=== PATIENT | female | born 1970 | race Caucasian/White ===

== ENCOUNTER 2021-08-04 15:50 | Inpatient (IN) | payer OTHER ==
[2021-08-04 17:52] VITALS: BMI 38.0
[2021-08-04] MEDS ORDERED: chlordiazePOXIDE HCL 25 MG CAPSULE PO ONE (18:46)
[2021-08-04] MEDS ORDERED: chlordiazePOXIDE HCL 25 MG CAPSULE ONE (19:01)
[2021-08-04] MEDS ORDERED: TRIMETHOBENZAMIDE HCL 200MG/2ML INJ IM ONE ×2 (20:30→20:46)
[2021-08-04] MEDS ORDERED: BENZOCAINE/MENTHOL (CHLORASEPTIC ) LOZENGE MM PRN (20:41)
[2021-08-04] MEDS ORDERED: ACETAMINOPHEN 325 MG TABLET (FP) PO PRN ×2 (20:41)
[2021-08-04] MEDS ORDERED: LOPERAMIDE HCL 2 MG CAPSULE PO PRN (20:41)
[2021-08-04] MEDS ORDERED: BISMUTH SUBSALICYLATE 524 MG/30 ML PO PRN (20:41)
[2021-08-04] MEDS ORDERED: NICOTINE POLACRILEX 2 MG GUM BUC PRN (20:41)
[2021-08-04] MEDS ORDERED: MAGNESIUM CITRATE 300 ML BOTTLE PO PRN (20:41)
[2021-08-04] MEDS ORDERED: MAG HYDROX/AL HYDROX/SIMETH 30 ML UNIT-DOSE CUP PO PRN (20:41)
[2021-08-04] MEDS ORDERED: MAGNESIUM HYDROX 2400MG/30ML ORAL SUSPENSION 30 ML CUP PO PRN (20:41)
[2021-08-04] MEDS ORDERED: ONDANSETRON *ODT* 4 MG TABLET SL PRN (20:41)
[2021-08-04] MEDS ORDERED: DICYCLOMINE HCL 10 MG CAPSULE PO PRN (20:41)
[2021-08-04] MEDS ORDERED: chlordiazePOXIDE HCL 25 MG CAPSULE PO PRN (21:03)
[2021-08-04] MEDS: MELATONIN 5 MG TABLETS PO PRN (22:18)
[2021-08-04] MEDS: THIAMINE HCL 100 MG TABLET (FP) PO SCH (22:19)
[2021-08-04] MEDS: chlordiazePOXIDE HCL 25 MG CAPSULE PO SCH (22:21)
[2021-08-04] MEDS: hydrOXYzine PAMOATE 25 MG CAPSULE (FP) PO PRN (22:25)
[2021-08-04] MEDS: IBUPROFEN 400 MG TABLET (FP) PO PRN (22:43)
[2021-08-04] MEDS ORDERED: TRIMETHOBENZAMIDE HCL 200MG/2ML INJ IM PRN (23:58)
[2021-08-05] MEDS: chlordiazePOXIDE HCL 25 MG CAPSULE PO SCH ×4 (06:14→22:28)
[2021-08-05] MEDS: PRENATAL VITAMINS W/ FOLIC ACID TABLET (FP) PO SCH (10:22)
[2021-08-05] MEDS: METHOCARBAMOL 500 MG TABLET PO PRN ×2 (10:23→22:27)
[2021-08-05] MEDS: PANTOPRAZOLE 40 MG TABLET PO SCH (10:23)
[2021-08-05] MEDS: hydrOXYzine PAMOATE 25 MG CAPSULE (FP) PO PRN ×2 (10:25→22:27)
[2021-08-05 10:41] LABS: HEMATOCRIT 31.4 % (32.4-45.2); HEMOGLOBIN 9.5 GM/dL (10.7-15.3); MCH 20.8 pg (25.7-33.7); MCHC 30.3 g/dl (32.0-36.0); MEAN CELL VOLUME 68.6 fl (80-96); MEAN PLT VOLUME 8.3 fl (7.5-11.1); PLATELET COUNT 329 10^3/uL (134-434); RBC 4.58 M/mm3 (3.60-5.2); RDW 20.5 % (11.6-15.6); WHITE BLOOD COUNT 6.8 K/mm3 (4.0-10.0)
[2021-08-05 10:49] LABS: ALBUMIN 3.5 g/dl (3.4-5.0); BLOOD UREA NITROGEN 5.4 mg/dL (7-18); CALCIUM 9.4 mg/dL (8.5-10.1)
[2021-08-05 10:54] LABS: TOT PROT 7.2 g/dl (6.4-8.2)
[2021-08-05 11:01] LABS: CREATININE 0.6 mg/dL (0.55-1.3)
[2021-08-05] MEDS: THIAMINE HCL 100 MG TABLET (FP) PO SCH (22:27)
[2021-08-05] MEDS: MELATONIN 5 MG TABLETS PO PRN (22:27)
[2021-08-06] MEDS: chlordiazePOXIDE HCL 25 MG CAPSULE PO SCH ×4 (06:21→22:15)
[2021-08-06] MEDS: METHOCARBAMOL 500 MG TABLET PO PRN ×2 (06:21→22:14)
[2021-08-06] MEDS: hydrOXYzine PAMOATE 25 MG CAPSULE (FP) PO PRN (06:21)
[2021-08-06] MEDS: PRENATAL VITAMINS W/ FOLIC ACID TABLET (FP) PO SCH (10:15)
[2021-08-06] MEDS: PANTOPRAZOLE 40 MG TABLET PO SCH (10:15)
[2021-08-06] MEDS: IBUPROFEN 400 MG TABLET (FP) PO PRN (10:17)
[2021-08-06] MEDS ORDERED: cloNIDine HCL 0.1 MG TABLET PO PRN (16:54)
[2021-08-06] MEDS: NICOTINE 10 MG CARTRIDGE (INHALER) IH PRN (17:32)
[2021-08-06] MEDS: MELATONIN 5 MG TABLETS PO PRN (22:13)
[2021-08-06] MEDS: THIAMINE HCL 100 MG TABLET (FP) PO SCH (22:14)
[2021-08-07] MEDS ORDERED: chlordiazePOXIDE HCL 10 MG CAPSULE PO PRN
[2021-08-07] MEDS: chlordiazePOXIDE HCL 10 MG CAPSULE PO SCH ×4 (05:52→22:14)
[2021-08-07] MEDS: METHOCARBAMOL 500 MG TABLET PO PRN ×2 (05:54→19:06)
[2021-08-07] MEDS: NICOTINE 10 MG CARTRIDGE (INHALER) IH PRN ×2 (10:05→16:03)
[2021-08-07] MEDS: PANTOPRAZOLE 40 MG TABLET PO SCH (10:06)
[2021-08-07] MEDS: PRENATAL VITAMINS W/ FOLIC ACID TABLET (FP) PO SCH (10:08)
[2021-08-07] MEDS: IBUPROFEN 400 MG TABLET (FP) PO PRN ×2 (10:10→19:06)
[2021-08-07] MEDS: THIAMINE HCL 100 MG TABLET (FP) PO SCH (22:14)
[2021-08-07] MEDS: MELATONIN 5 MG TABLETS PO PRN (22:17)
[2021-08-07] MEDS: hydrOXYzine PAMOATE 25 MG CAPSULE (FP) PO PRN (22:20)
[2021-08-08] MEDS: chlordiazePOXIDE HCL 10 MG CAPSULE PO SCH ×2 (06:11→18:01)
[2021-08-08] MEDS: METHOCARBAMOL 500 MG TABLET PO PRN ×3 (06:12→22:36)
[2021-08-08] MEDS: hydrOXYzine PAMOATE 25 MG CAPSULE (FP) PO PRN ×2 (06:23→18:00)
[2021-08-08] MEDS: PRENATAL VITAMINS W/ FOLIC ACID TABLET (FP) PO SCH (10:30)
[2021-08-08] MEDS: IBUPROFEN 400 MG TABLET (FP) PO PRN (10:31)
[2021-08-08] MEDS: PANTOPRAZOLE 40 MG TABLET PO SCH (10:31)
[2021-08-08] MEDS: NICOTINE 10 MG CARTRIDGE (INHALER) IH PRN ×2 (10:33→18:00)
[2021-08-08] MEDS: THIAMINE HCL 100 MG TABLET (FP) PO SCH (22:35)
[2021-08-08] MEDS: MELATONIN 5 MG TABLETS PO PRN (22:36)
[2021-08-09] MEDS ORDERED: chlordiazePOXIDE HCL 10 MG CAPSULE PO ONE (05:00)
[2021-08-09] MEDS: METHOCARBAMOL 500 MG TABLET PO PRN (05:31)
[2021-08-09] MEDS: IBUPROFEN 400 MG TABLET (FP) PO PRN (05:44)
[2021-08-09 08:43] VITALS: BP 145/85; PULSE 100; TEMP 97.5
[2021-08-09] MEDS: NICOTINE 10 MG CARTRIDGE (INHALER) IH PRN (09:45)
[2021-08-09] MEDS: PANTOPRAZOLE 40 MG TABLET PO SCH (09:45)
[2021-08-09] MEDS: PRENATAL VITAMINS W/ FOLIC ACID TABLET (FP) PO SCH (09:46)
== END 2021-08-09 10:06 | disposition home or self-care (01) | DRG 897 ==
LOC: YASAS 15:50 → Y3N 21:04
PROVIDERS: ADMIT Allergy & Immunology; ATTEND Allergy & Immunology
PROC: HZ2ZZZZ Detoxification Services for Substance Abuse Treatment (ICD-10-PCS; principal; 2021-08-04)
DX: F10.230 Alcohol dependence with withdrawal, uncomplicated (principal); F19.282 Other psychoactive substance dependence with psychoactive substance-induced sleep disorder; F19.280 Other psychoactive substance dependence with psychoactive substance-induced anxiety disorder; F19.24 Other psychoactive substance dependence with psychoactive substance-induced mood disorder; F41.9 Anxiety disorder, unspecified; F32.A Depression, unspecified; I10 Essential (primary) hypertension; K21.9 Gastro-esophageal reflux disease without esophagitis; R00.0 Tachycardia, unspecified; E66.9 Obesity, unspecified; Z68.38 Body mass index [BMI] 38.0-38.9, adult; Z72.0 Tobacco use; Z91.51 Personal history of suicidal behavior
CPT/HCPCS: 36415; 80053; 81025; 85027; 86780; 87811; 93005; 93010; C9803-CS; Q0162; U0003; U0005

== ENCOUNTER 2021-08-24 14:40 | Inpatient (IN) | payer OTHER ==
[2021-08-24] MEDS ORDERED: MAGNESIUM HYDROX 2400MG/30ML ORAL SUSPENSION 30 ML CUP PO PRN (15:47)
[2021-08-24] MEDS ORDERED: MAGNESIUM CITRATE 300 ML BOTTLE PO PRN (15:47)
[2021-08-24] MEDS ORDERED: DICYCLOMINE HCL 10 MG CAPSULE PO PRN (15:47)
[2021-08-24] MEDS ORDERED: chlordiazePOXIDE HCL 25 MG CAPSULE PO PRN (15:47)
[2021-08-24] MEDS ORDERED: ACETAMINOPHEN 325 MG TABLET (FP) PO PRN (15:47)
[2021-08-24] MEDS ORDERED: ONDANSETRON *ODT* 4 MG TABLET SL PRN (15:47)
[2021-08-24] MEDS ORDERED: LOPERAMIDE HCL 2 MG CAPSULE PO PRN (15:47)
[2021-08-24] MEDS ORDERED: BISMUTH SUBSALICYLATE 524 MG/30 ML PO PRN (15:47)
[2021-08-24] MEDS ORDERED: BENZOCAINE/MENTHOL (CHLORASEPTIC ) LOZENGE MM PRN (15:47)
[2021-08-24 16:06] VITALS: BMI 39.4
[2021-08-24] MEDS: PRENATAL VITAMINS W/ FOLIC ACID TABLET (FP) PO SCH (17:10)
[2021-08-24] MEDS: NICOTINE 7 MG/24 HOURS TOPICAL PATCH TD SCH (17:10)
[2021-08-24] MEDS: chlordiazePOXIDE HCL 25 MG CAPSULE PO SCH ×2 (18:33→22:16)
[2021-08-24] MEDS: hydrOXYzine PAMOATE 25 MG CAPSULE (FP) PO SCH ×2 (18:35→22:16)
[2021-08-24] MEDS: MAG HYDROX/AL HYDROX/SIMETH 30 ML UNIT-DOSE CUP PO PRN (18:35)
[2021-08-24] MEDS: MELATONIN 5 MG TABLETS PO SCH (22:16)
[2021-08-24] MEDS: THIAMINE HCL 100 MG TABLET (FP) PO SCH (22:16)
[2021-08-24] MEDS: IBUPROFEN 400 MG TABLET (FP) PO PRN (22:17)
[2021-08-25] MEDS: hydrOXYzine PAMOATE 25 MG CAPSULE (FP) PO SCH ×5 (05:58→22:17)
[2021-08-25] MEDS: chlordiazePOXIDE HCL 25 MG CAPSULE PO SCH ×4 (05:58→22:16)
[2021-08-25 10:23] LABS: HEMATOCRIT 32.9 % (32.4-45.2); HEMOGLOBIN 9.8 GM/dL (10.7-15.3); MCH 20.9 pg (25.7-33.7); MCHC 29.9 g/dl (32.0-36.0); MEAN CELL VOLUME 69.9 fl (80-96); MEAN PLT VOLUME 8.1 fl (7.5-11.1); PLATELET COUNT 280 10^3/uL (134-434); RDW 22.5 % (11.6-15.6); WHITE BLOOD COUNT 3.1 K/mm3 (4.0-10.0)
[2021-08-25 10:37] LABS: ALBUMIN 3.1 g/dl (3.4-5.0); BLOOD UREA NITROGEN 6.4 mg/dL (7-18); CALCIUM 9.1 mg/dL (8.5-10.1)
[2021-08-25 10:40] LABS: CREATININE 0.7 mg/dL (0.55-1.3)
[2021-08-25 10:42] LABS: BILIRUBIN,TOTAL 0.3 mg/dL (0.2-1); TOT PROT 6.8 g/dl (6.4-8.2)
[2021-08-25] MEDS: busPIRone HCL 10 MG TABLET (FP) PO SCH ×2 (10:51→22:17)
[2021-08-25] MEDS: IBUPROFEN 400 MG TABLET (FP) PO PRN (10:51)
[2021-08-25] MEDS: propRANOLol HCL 10 MG TABLET PO SCH (10:52)
[2021-08-25] MEDS: LOSARTAN POTASSIUM 25 MG TABLET PO SCH (10:52)
[2021-08-25] MEDS: PRENATAL VITAMINS W/ FOLIC ACID TABLET (FP) PO SCH (10:52)
[2021-08-25] MEDS: NICOTINE 10 MG CARTRIDGE (INHALER) IH PRN ×3 (10:55→22:20)
[2021-08-25] MEDS: NICOTINE 7 MG/24 HOURS TOPICAL PATCH TD SCH (11:14)
[2021-08-25] MEDS: ACETAMINOPHEN 325 MG TABLET (FP) PO PRN (16:35)
[2021-08-25] MEDS: traZODone HCL 100 MG TABLET (FP) PO SCH (22:17)
[2021-08-25] MEDS: MELATONIN 5 MG TABLETS PO SCH (22:17)
[2021-08-25] MEDS: THIAMINE HCL 100 MG TABLET (FP) PO SCH (22:17)
[2021-08-26] MEDS: hydrOXYzine PAMOATE 25 MG CAPSULE (FP) PO SCH ×5 (05:51→22:57)
[2021-08-26] MEDS: chlordiazePOXIDE HCL 25 MG CAPSULE PO SCH ×4 (05:51→22:57)
[2021-08-26] MEDS: LOSARTAN POTASSIUM 25 MG TABLET PO SCH (10:37)
[2021-08-26] MEDS: PRENATAL VITAMINS W/ FOLIC ACID TABLET (FP) PO SCH (10:37)
[2021-08-26] MEDS: IBUPROFEN 400 MG TABLET (FP) PO PRN ×2 (10:37→17:58)
[2021-08-26] MEDS: busPIRone HCL 10 MG TABLET (FP) PO SCH ×2 (10:37→22:57)
[2021-08-26] MEDS: propRANOLol HCL 10 MG TABLET PO SCH (10:37)
[2021-08-26] MEDS: NICOTINE 10 MG CARTRIDGE (INHALER) IH PRN ×3 (10:39→22:57)
[2021-08-26] MEDS: traZODone HCL 100 MG TABLET (FP) PO SCH (22:57)
[2021-08-26] MEDS: MELATONIN 5 MG TABLETS PO SCH (22:57)
[2021-08-26] MEDS: THIAMINE HCL 100 MG TABLET (FP) PO SCH (22:58)
[2021-08-27] MEDS ORDERED: chlordiazePOXIDE HCL 10 MG CAPSULE PO PRN
[2021-08-27] MEDS: chlordiazePOXIDE HCL 10 MG CAPSULE PO SCH ×4 (05:08→22:42)
[2021-08-27] MEDS: hydrOXYzine PAMOATE 25 MG CAPSULE (FP) PO SCH ×5 (05:08→22:41)
[2021-08-27] MEDS: IBUPROFEN 400 MG TABLET (FP) PO PRN ×2 (05:10→10:43)
[2021-08-27] MEDS: busPIRone HCL 10 MG TABLET (FP) PO SCH ×2 (10:43→22:41)
[2021-08-27] MEDS: LOSARTAN POTASSIUM 25 MG TABLET PO SCH (10:43)
[2021-08-27] MEDS: propRANOLol HCL 10 MG TABLET PO SCH (10:43)
[2021-08-27] MEDS: PRENATAL VITAMINS W/ FOLIC ACID TABLET (FP) PO SCH (10:46)
[2021-08-27] MEDS: NICOTINE 10 MG CARTRIDGE (INHALER) IH PRN ×4 (10:46→22:41)
[2021-08-27] MEDS: FAMOTIDINE 20 MG TABLET PO SCH ×2 (12:35→22:41)
[2021-08-27] MEDS: traZODone HCL 100 MG TABLET (FP) PO SCH (22:41)
[2021-08-27] MEDS: MELATONIN 5 MG TABLETS PO SCH (22:41)
[2021-08-27] MEDS: THIAMINE HCL 100 MG TABLET (FP) PO SCH (22:41)
[2021-08-27] MEDS: METHOCARBAMOL 500 MG TABLET PO PRN (22:44)
[2021-08-28] MEDS: chlordiazePOXIDE HCL 10 MG CAPSULE PO SCH ×2 (05:20→17:32)
[2021-08-28] MEDS: ACETAMINOPHEN 325 MG TABLET (FP) PO PRN (05:21)
[2021-08-28] MEDS: hydrOXYzine PAMOATE 25 MG CAPSULE (FP) PO SCH ×5 (05:40→22:22)
[2021-08-28] MEDS: PRENATAL VITAMINS W/ FOLIC ACID TABLET (FP) PO SCH (10:17)
[2021-08-28] MEDS: propRANOLol HCL 10 MG TABLET PO SCH (10:17)
[2021-08-28] MEDS: LOSARTAN POTASSIUM 25 MG TABLET PO SCH (10:17)
[2021-08-28] MEDS: busPIRone HCL 10 MG TABLET (FP) PO SCH ×2 (10:17→22:22)
[2021-08-28] MEDS: FAMOTIDINE 20 MG TABLET PO SCH ×2 (10:17→22:22)
[2021-08-28] MEDS: NICOTINE 10 MG CARTRIDGE (INHALER) IH PRN ×3 (10:18→22:24)
[2021-08-28] MEDS: MAG HYDROX/AL HYDROX/SIMETH 30 ML UNIT-DOSE CUP PO PRN (10:19)
[2021-08-28] MEDS: MELATONIN 5 MG TABLETS PO SCH (22:22)
[2021-08-28] MEDS: traZODone HCL 100 MG TABLET (FP) PO SCH (22:22)
[2021-08-28] MEDS: THIAMINE HCL 100 MG TABLET (FP) PO SCH (22:22)
[2021-08-28] MEDS: METHOCARBAMOL 500 MG TABLET PO PRN (22:22)
[2021-08-29] MEDS ORDERED: chlordiazePOXIDE HCL 10 MG CAPSULE PO ONE (05:00)
[2021-08-29] MEDS: hydrOXYzine PAMOATE 25 MG CAPSULE (FP) PO SCH ×2 (05:31→09:01)
[2021-08-29] MEDS: NICOTINE 10 MG CARTRIDGE (INHALER) IH PRN (05:50)
[2021-08-29] MEDS: ACETAMINOPHEN 325 MG TABLET (FP) PO PRN (05:50)
[2021-08-29] MEDS: propRANOLol HCL 10 MG TABLET PO SCH (09:01)
[2021-08-29] MEDS: busPIRone HCL 10 MG TABLET (FP) PO SCH (09:01)
[2021-08-29] MEDS: FAMOTIDINE 20 MG TABLET PO SCH (09:02)
[2021-08-29] MEDS: LOSARTAN POTASSIUM 25 MG TABLET PO SCH (09:02)
[2021-08-29] MEDS: PRENATAL VITAMINS W/ FOLIC ACID TABLET (FP) PO SCH (09:02)
[2021-08-29 09:29] VITALS: BP 137/75; PULSE 91; TEMP 97.1
== END 2021-08-29 09:20 | disposition home or self-care (01) | DRG 897 ==
LOC: YASAS 14:40 → Y6N 17:13
PROVIDERS: ADMIT Allergy & Immunology; ATTEND Surgery
PROC: HZ2ZZZZ Detoxification Services for Substance Abuse Treatment (ICD-10-PCS; principal; 2021-08-24)
DX: F10.230 Alcohol dependence with withdrawal, uncomplicated (principal); F19.282 Other psychoactive substance dependence with psychoactive substance-induced sleep disorder; F19.280 Other psychoactive substance dependence with psychoactive substance-induced anxiety disorder; F10.280 Alcohol dependence with alcohol-induced anxiety disorder; F10.282 Alcohol dependence with alcohol-induced sleep disorder; F19.24 Other psychoactive substance dependence with psychoactive substance-induced mood disorder; F41.9 Anxiety disorder, unspecified; F43.10 Post-traumatic stress disorder, unspecified; D50.9 Iron deficiency anemia, unspecified; D72.819 Decreased white blood cell count, unspecified; I10 Essential (primary) hypertension; K21.9 Gastro-esophageal reflux disease without esophagitis; E66.9 Obesity, unspecified; Z68.39 Body mass index [BMI] 39.0-39.9, adult; Z91.010 Allergy to peanuts
CPT/HCPCS: 36415; 80053; 81025; 82607; 82746; 82962; 83540; 83550; 85027; 86780; 93005; 93010; C9803-CS; Q0162; U0003; U0005

== ENCOUNTER 2021-09-23 08:40 | Inpatient (IN) | payer OTHER ==
[2021-09-22 15:54] VITALS: BMI 41.1
[2021-09-22] MEDS: ACETAMINOPHEN 325 MG TABLET (FP) PO PRN (18:04)
[2021-09-22] MEDS: METHOCARBAMOL 500 MG TABLET PO PRN (18:15)
[2021-09-22] MEDS: hydrOXYzine PAMOATE 25 MG CAPSULE (FP) PO PRN (19:30)
[2021-09-22] MEDS: FAMOTIDINE 20 MG TABLET PO SCH (22:47)
[2021-09-22] MEDS: chlordiazePOXIDE HCL 25 MG CAPSULE PO SCH (22:47)
[2021-09-22] MEDS: MELATONIN 5 MG TABLETS PO SCH (22:47)
[2021-09-22] MEDS: THIAMINE HCL 100 MG TABLET (FP) PO SCH (22:47)
[2021-09-23] MEDS: chlordiazePOXIDE HCL 25 MG CAPSULE PO SCH ×4 (06:31→22:28)
[2021-09-23] MEDS: ONDANSETRON *ODT* 4 MG TABLET SL PRN (06:33)
[~2021-09-23 08:40] MED LIST: ACETAMINOPHEN 325 MG TABLET (FP) PO PRN; BENZOCAINE/MENTHOL (CHLORASEPTIC ) LOZENGE MM PRN; BISMUTH SUBSALICYLATE 524 MG/30 ML PO PRN; DICYCLOMINE HCL 10 MG CAPSULE PO PRN; LOPERAMIDE HCL 2 MG CAPSULE PO PRN; LORazepam 2 MG/ML SDV VIAL IM ONE; MAG HYDROX/AL HYDROX/SIMETH 30 ML UNIT-DOSE CUP ONE; MAG HYDROX/AL HYDROX/SIMETH 30 ML UNIT-DOSE CUP PO PRN; MAGNESIUM CITRATE 300 ML BOTTLE PO PRN; MAGNESIUM HYDROX 2400MG/30ML ORAL SUSPENSION 30 ML CUP PO PRN; METHOCARBAMOL 500 MG TABLET ONE; ONDANSETRON *ODT* 4 MG TABLET ONE; PATIENT'S OWN MEDICATION (NON-FORMULARY) (Ferrous Sulfate [Iron] 325 MG Tablet) PO SCH; TRIMETHOBENZAMIDE HCL 200MG/2ML INJ IM ONE; chlordiazePOXIDE HCL 25 MG CAPSULE ONE; chlordiazePOXIDE HCL 25 MG CAPSULE PO PRN; diazePAM 5 MG TABLET ONE; diazePAM 5 MG TABLET PO PRN; diazePAM 5 MG TABLET PO SCH; hydrOXYzine PAMOATE 25 MG CAPSULE (FP) PO ONE; traZODone HCL 50 MG TABLET (FP) PO ONE
[2021-09-23] MEDS ORDERED: IBUPROFEN 600 MG TABLET (FP) PO ONE (09:06)
[2021-09-23] MEDS ORDERED: chlordiazePOXIDE HCL 25 MG CAPSULE ONE ×2 (09:06→13:16)
[2021-09-23] MEDS: IBUPROFEN 600 MG TABLET (FP) PO PRN (09:09)
[2021-09-23] MEDS ORDERED: METHOCARBAMOL 500 MG TABLET ONE (13:22)
[2021-09-23] MEDS: METHOCARBAMOL 500 MG TABLET PO PRN ×2 (13:22→18:37)
[2021-09-23] MEDS: FAMOTIDINE 20 MG TABLET PO SCH ×2 (16:00→22:27)
[2021-09-23] MEDS: PRENATAL VITAMINS W/ FOLIC ACID TABLET (FP) PO SCH (16:00)
[2021-09-23] MEDS: LOSARTAN POTASSIUM 25 MG TABLET PO SCH (16:00)
[2021-09-23] MEDS: FERROUS SO4 325 MG TABLET (FP) PO SCH ×2 (16:00→18:19)
[2021-09-23] MEDS: propRANOLol HCL 10 MG TABLET PO SCH (16:00)
[2021-09-23] MEDS ORDERED: busPIRone HCL 10 MG TABLET (FP) PO PRN (17:03)
[2021-09-23] MEDS: traZODone HCL 50 MG TABLET (FP) PO SCH (22:27)
[2021-09-23] MEDS: MELATONIN 5 MG TABLETS PO SCH (22:27)
[2021-09-23] MEDS: THIAMINE HCL 100 MG TABLET (FP) PO SCH (22:27)
[2021-09-23] MEDS: NICOTINE 10 MG CARTRIDGE (INHALER) IH PRN (22:31)
[2021-09-24] MEDS ORDERED: diazePAM 5 MG TABLET PO SCH (06:00)
[2021-09-24] MEDS: chlordiazePOXIDE HCL 25 MG CAPSULE PO SCH ×4 (06:08→22:12)
[2021-09-24] MEDS: FERROUS SO4 325 MG TABLET (FP) PO SCH ×3 (07:55→17:26)
[2021-09-24] MEDS: LOSARTAN POTASSIUM 25 MG TABLET PO SCH (10:27)
[2021-09-24] MEDS: PRENATAL VITAMINS W/ FOLIC ACID TABLET (FP) PO SCH (10:27)
[2021-09-24] MEDS: propRANOLol HCL 10 MG TABLET PO SCH (10:27)
[2021-09-24] MEDS: FAMOTIDINE 20 MG TABLET PO SCH ×2 (10:27→22:11)
[2021-09-24] MEDS: METHOCARBAMOL 500 MG TABLET PO PRN ×2 (10:27→22:13)
[2021-09-24] MEDS: IBUPROFEN 600 MG TABLET (FP) PO PRN ×2 (10:30→17:27)
[2021-09-24] MEDS: ONDANSETRON *ODT* 4 MG TABLET SL PRN (17:26)
[2021-09-24] MEDS: NICOTINE 10 MG CARTRIDGE (INHALER) IH PRN ×2 (17:27→22:11)
[2021-09-24] MEDS: THIAMINE HCL 100 MG TABLET (FP) PO SCH (22:11)
[2021-09-24] MEDS: MELATONIN 5 MG TABLETS PO SCH (22:11)
[2021-09-24] MEDS: traZODone HCL 50 MG TABLET (FP) PO SCH (22:11)
[2021-09-24] MEDS: IBUPROFEN 400 MG TABLET (FP) PO PRN (22:13)
[2021-09-25] MEDS ORDERED: chlordiazePOXIDE HCL 10 MG CAPSULE PO PRN
[2021-09-25] MEDS ORDERED: diazePAM 5 MG TABLET PO SCH (06:00)
[2021-09-25] MEDS: chlordiazePOXIDE HCL 10 MG CAPSULE PO SCH ×4 (06:37→22:25)
[2021-09-25] MEDS: METHOCARBAMOL 500 MG TABLET PO PRN ×2 (06:38→17:53)
[2021-09-25] MEDS: IBUPROFEN 600 MG TABLET (FP) PO PRN ×2 (06:40→17:53)
[2021-09-25] MEDS: FERROUS SO4 325 MG TABLET (FP) PO SCH ×3 (07:15→17:51)
[2021-09-25] MEDS: PRENATAL VITAMINS W/ FOLIC ACID TABLET (FP) PO SCH (10:12)
[2021-09-25] MEDS: FAMOTIDINE 20 MG TABLET PO SCH ×2 (10:13→22:24)
[2021-09-25] MEDS: propRANOLol HCL 10 MG TABLET PO SCH (10:13)
[2021-09-25] MEDS: LOSARTAN POTASSIUM 25 MG TABLET PO SCH (10:13)
[2021-09-25] MEDS: NICOTINE 10 MG CARTRIDGE (INHALER) IH PRN (17:53)
[2021-09-25] MEDS: ACETAMINOPHEN 325 MG TABLET (FP) PO PRN (22:24)
[2021-09-25] MEDS: traZODone HCL 50 MG TABLET (FP) PO SCH (22:24)
[2021-09-25] MEDS: THIAMINE HCL 100 MG TABLET (FP) PO SCH (22:24)
[2021-09-25] MEDS: MELATONIN 5 MG TABLETS PO SCH (22:25)
[2021-09-25] MEDS: ONDANSETRON *ODT* 4 MG TABLET SL PRN (22:28)
[2021-09-26] MEDS: METHOCARBAMOL 500 MG TABLET PO PRN ×2 (05:36→17:48)
[2021-09-26] MEDS: chlordiazePOXIDE HCL 10 MG CAPSULE PO SCH ×2 (05:36→17:48)
[2021-09-26] MEDS ORDERED: diazePAM 5 MG TABLET PO ONE (06:00)
[2021-09-26] MEDS: FERROUS SO4 325 MG TABLET (FP) PO SCH ×3 (07:37→17:48)
[2021-09-26] MEDS: propRANOLol HCL 10 MG TABLET PO SCH (10:33)
[2021-09-26] MEDS: PRENATAL VITAMINS W/ FOLIC ACID TABLET (FP) PO SCH (10:33)
[2021-09-26] MEDS: LOSARTAN POTASSIUM 25 MG TABLET PO SCH (10:33)
[2021-09-26] MEDS: FAMOTIDINE 20 MG TABLET PO SCH ×2 (10:33→22:18)
[2021-09-26] MEDS: IBUPROFEN 400 MG TABLET (FP) PO PRN (10:34)
[2021-09-26 10:46] LABS: HEMOGLOBIN 9.6 GM/dL (10.7-15.3); MCH 23.3 pg (25.7-33.7); MCHC 31.9 g/dl (32.0-36.0); MEAN CELL VOLUME 72.9 fl (80-96); MEAN PLT VOLUME 8.5 fl (7.5-11.1); PLATELET COUNT 243 10^3/uL (134-434); RBC 4.11 M/mm3 (3.60-5.2); RDW 22.3 % (11.6-15.6); WHITE BLOOD COUNT 6.9 K/mm3 (4.0-10.0)
[2021-09-26] MEDS: IBUPROFEN 600 MG TABLET (FP) PO PRN (17:48)
[2021-09-26] MEDS: NICOTINE 10 MG CARTRIDGE (INHALER) IH PRN (17:50)
[2021-09-26] MEDS: THIAMINE HCL 100 MG TABLET (FP) PO SCH (22:18)
[2021-09-26] MEDS: hydrOXYzine PAMOATE 25 MG CAPSULE (FP) PO PRN (22:18)
[2021-09-26] MEDS: traZODone HCL 50 MG TABLET (FP) PO SCH (22:18)
[2021-09-26] MEDS: MELATONIN 5 MG TABLETS PO SCH (22:18)
[2021-09-26] MEDS: ACETAMINOPHEN 325 MG TABLET (FP) PO PRN (22:20)
[2021-09-27] MEDS ORDERED: chlordiazePOXIDE HCL 10 MG CAPSULE PO ONE (05:00)
[2021-09-27] MEDS: IBUPROFEN 400 MG TABLET (FP) PO PRN (05:43)
[2021-09-27] MEDS: METHOCARBAMOL 500 MG TABLET PO PRN (05:44)
[2021-09-27] MEDS: FERROUS SO4 325 MG TABLET (FP) PO SCH (08:55)
[2021-09-27 09:11] VITALS: BP 153/80; PULSE 109; TEMP 97.1
[2021-09-27] MEDS: propRANOLol HCL 10 MG TABLET PO SCH (09:46)
[2021-09-27] MEDS: PRENATAL VITAMINS W/ FOLIC ACID TABLET (FP) PO SCH (09:46)
[2021-09-27] MEDS: LOSARTAN POTASSIUM 25 MG TABLET PO SCH (09:46)
[2021-09-27] MEDS: FAMOTIDINE 20 MG TABLET PO SCH (09:46)
== END 2021-09-27 09:55 | disposition home or self-care (01) | DRG 897 ==
LOC: YASAS 08:40 → Y3N 13:54
PROVIDERS: ADMIT Allergy & Immunology; ATTEND Surgery
PROC: HZ2ZZZZ Detoxification Services for Substance Abuse Treatment (ICD-10-PCS; principal; 2021-09-23)
DX: F10.230 Alcohol dependence with withdrawal, uncomplicated (principal); Z68.41 Body mass index [BMI] 40.0-44.9, adult; F17.210 Nicotine dependence, cigarettes, uncomplicated; F41.9 Anxiety disorder, unspecified; F32.A Depression, unspecified; I10 Essential (primary) hypertension; D50.9 Iron deficiency anemia, unspecified; K21.9 Gastro-esophageal reflux disease without esophagitis; G47.00 Insomnia, unspecified; E66.9 Obesity, unspecified; Z91.410 Personal history of adult physical and sexual abuse; Z98.84 Bariatric surgery status; Z98.890 Other specified postprocedural states; Z86.19 Personal history of other infectious and parasitic diseases; Z91.010 Allergy to peanuts; Z91.018 Allergy to other foods; Z56.0 Unemployment, unspecified
CPT/HCPCS: 36415; 81025; 85027; C9803-CS; Q0162; U0003; U0005

== ENCOUNTER 2021-10-19 10:47 | Inpatient (IN) | payer OTHER ==
[2021-10-19 11:49] VITALS: BMI 36.2
[2021-10-19] MEDS ORDERED: MAGNESIUM HYDROX 2400MG/30ML ORAL SUSPENSION 30 ML CUP PO PRN (12:39)
[2021-10-19] MEDS ORDERED: BISMUTH SUBSALICYLATE 262 MG/15 ML BTL PO PRN (12:39)
[2021-10-19] MEDS ORDERED: MAGNESIUM CITRATE 300 ML BOTTLE PO PRN (12:39)
[2021-10-19] MEDS ORDERED: BENZOCAINE/MENTHOL (CHLORASEPTIC ) LOZENGE MM PRN (12:39)
[2021-10-19] MEDS ORDERED: ONDANSETRON *ODT* 4 MG TABLET SL PRN (12:39)
[2021-10-19] MEDS ORDERED: ACETAMINOPHEN 325 MG TABLET (FP) PO PRN (12:39)
[2021-10-19] MEDS ORDERED: NICOTINE 10 MG CARTRIDGE (INHALER) IH PRN (12:39)
[2021-10-19] MEDS ORDERED: LOPERAMIDE HCL 2 MG CAPSULE PO PRN (12:39)
[2021-10-19] MEDS ORDERED: chlordiazePOXIDE HCL 25 MG CAPSULE ONE ×2 (12:57→14:30)
[2021-10-19] MEDS ORDERED: IBUPROFEN 600 MG TABLET (FP) PO ONE (12:58)
[2021-10-19] MEDS: IBUPROFEN 600 MG TABLET (FP) PO PRN (12:59)
[2021-10-19] MEDS: chlordiazePOXIDE HCL 25 MG CAPSULE PO PRN (13:00)
[2021-10-19] MEDS ORDERED: ONDANSETRON *ODT* 4 MG TABLET ONE (14:30)
[2021-10-19] MEDS: hydrOXYzine PAMOATE 25 MG CAPSULE (FP) PO SCH ×3 (14:45→21:07)
[2021-10-19] MEDS ORDERED: chlordiazePOXIDE HCL 25 MG CAPSULE PO ONE (15:14)
[2021-10-19] MEDS: LOSARTAN POTASSIUM 50 MG TABLET PO SCH (16:04)
[2021-10-19] MEDS: METHOCARBAMOL 500 MG TABLET PO PRN (17:54)
[2021-10-19] MEDS: chlordiazePOXIDE HCL 25 MG CAPSULE PO SCH ×2 (17:54→22:09)
[2021-10-19] MEDS: IBUPROFEN 400 MG TABLET (FP) PO PRN (17:54)
[2021-10-19] MEDS: MAG HYDROX/AL HYDROX/SIMETH 30 ML UNIT-DOSE CUP PO PRN (17:54)
[2021-10-19] MEDS: MELATONIN 5 MG TABLETS PO SCH (21:07)
[2021-10-19] MEDS: DICYCLOMINE HCL 10 MG CAPSULE PO PRN (21:07)
[2021-10-19] MEDS: THIAMINE HCL 100 MG TABLET (FP) PO SCH (21:07)
[2021-10-19] MEDS: traZODone HCL 100 MG TABLET (FP) PO SCH (21:07)
[2021-10-19] MEDS: busPIRone HCL 5 MG TABLET PO SCH (21:35)
[2021-10-20] MEDS: hydrOXYzine PAMOATE 25 MG CAPSULE (FP) PO SCH ×5 (06:09→22:26)
[2021-10-20] MEDS: chlordiazePOXIDE HCL 25 MG CAPSULE PO SCH ×4 (06:09→22:27)
[2021-10-20] MEDS: METHOCARBAMOL 500 MG TABLET PO PRN ×3 (06:11→22:26)
[2021-10-20] MEDS: PRENATAL VITAMINS W/ FOLIC ACID TABLET (FP) PO SCH (10:47)
[2021-10-20] MEDS: IBUPROFEN 400 MG TABLET (FP) PO PRN (10:48)
[2021-10-20] MEDS: LOSARTAN POTASSIUM 50 MG TABLET PO SCH (10:49)
[2021-10-20] MEDS: busPIRone HCL 5 MG TABLET PO SCH ×2 (10:49→22:26)
[2021-10-20 12:26] LABS: HEMATOCRIT 37.4 % (32.4-45.2); HEMOGLOBIN 11.8 GM/dL (10.7-15.3); MCH 22.9 pg (25.7-33.7); MCHC 31.6 g/dl (32.0-36.0); MEAN CELL VOLUME 72.6 fl (80-96); MEAN PLT VOLUME 8.7 fl (7.5-11.1); PLATELET COUNT 309 10^3/uL (134-434); RBC 5.15 M/mm3 (3.60-5.2); RDW 22.5 % (11.6-15.6); WHITE BLOOD COUNT 7.6 K/mm3 (4.0-10.0)
[2021-10-20 12:30] LABS: CHLORIDE 89 mmol/L (98-107); SODIUM 131 mmol/L (136-145)
[2021-10-20 12:34] LABS: CALCIUM 9.6 mg/dL (8.5-10.1)
[2021-10-20 12:35] LABS: ANION GAP 12 MMOL/L (8-16); BLOOD UREA NITROGEN 8.9 mg/dL (7-18); CO2 30 mmol/L (21-32); GLUCOSE,RANDOM 173 mg/dL (74-106)
[2021-10-20 12:38] LABS: CREATININE 0.8 mg/dL (0.55-1.3); SGOT/AST 24 U/L (15-37); SGPT/ALT 35 U/L (13-61)
[2021-10-20 12:39] LABS: BILIRUBIN,TOTAL 0.7 mg/dL (0.2-1); TOT PROT 7.9 g/dl (6.4-8.2)
[2021-10-20 12:40] LABS: ALK PHOS 110 U/L (45-117)
[2021-10-20] MEDS: propRANOLol HCL 10 MG TABLET PO SCH ×2 (16:10→22:28)
[2021-10-20] MEDS: IBUPROFEN 600 MG TABLET (FP) PO PRN (18:01)
[2021-10-20] MEDS: traZODone HCL 100 MG TABLET (FP) PO SCH (22:26)
[2021-10-20] MEDS: MELATONIN 5 MG TABLETS PO SCH (22:26)
[2021-10-20] MEDS: THIAMINE HCL 100 MG TABLET (FP) PO SCH (22:26)
[2021-10-20] MEDS: MAG HYDROX/AL HYDROX/SIMETH 30 ML UNIT-DOSE CUP PO PRN (22:28)
[2021-10-21] MEDS: chlordiazePOXIDE HCL 25 MG CAPSULE PO PRN (05:48)
[2021-10-21] MEDS: hydrOXYzine PAMOATE 25 MG CAPSULE (FP) PO SCH ×5 (05:48→22:14)
[2021-10-21] MEDS: IBUPROFEN 600 MG TABLET (FP) PO PRN ×3 (05:48→22:14)
[2021-10-21] MEDS: propRANOLol HCL 10 MG TABLET PO SCH ×3 (05:48→22:14)
[2021-10-21] MEDS: METHOCARBAMOL 500 MG TABLET PO PRN ×3 (05:49→22:14)
[2021-10-21] MEDS: chlordiazePOXIDE HCL 25 MG CAPSULE PO SCH ×4 (05:55→22:14)
[2021-10-21] MEDS: LOSARTAN POTASSIUM 50 MG TABLET PO SCH (10:51)
[2021-10-21] MEDS: busPIRone HCL 5 MG TABLET PO SCH ×2 (10:51→22:13)
[2021-10-21] MEDS: PRENATAL VITAMINS W/ FOLIC ACID TABLET (FP) PO SCH (10:51)
[2021-10-21] MEDS: ACETAMINOPHEN 325 MG TABLET (FP) PO PRN (18:17)
[2021-10-21] MEDS: THIAMINE HCL 100 MG TABLET (FP) PO SCH (22:14)
[2021-10-21] MEDS: MELATONIN 5 MG TABLETS PO SCH (22:14)
[2021-10-21] MEDS: traZODone HCL 100 MG TABLET (FP) PO SCH (22:14)
[2021-10-22] MEDS ORDERED: chlordiazePOXIDE HCL 10 MG CAPSULE PO PRN
[2021-10-22] MEDS: chlordiazePOXIDE HCL 10 MG CAPSULE PO SCH ×4 (06:05→22:25)
[2021-10-22] MEDS: hydrOXYzine PAMOATE 25 MG CAPSULE (FP) PO SCH ×5 (06:05→22:24)
[2021-10-22] MEDS: METHOCARBAMOL 500 MG TABLET PO PRN ×2 (06:06→17:52)
[2021-10-22] MEDS: IBUPROFEN 400 MG TABLET (FP) PO PRN ×2 (06:07→22:29)
[2021-10-22] MEDS: propRANOLol HCL 10 MG TABLET PO SCH ×3 (07:34→22:24)
[2021-10-22] MEDS: PRENATAL VITAMINS W/ FOLIC ACID TABLET (FP) PO SCH (10:27)
[2021-10-22] MEDS: MAG HYDROX/AL HYDROX/SIMETH 30 ML UNIT-DOSE CUP PO PRN ×2 (10:27→22:27)
[2021-10-22] MEDS: LOSARTAN POTASSIUM 50 MG TABLET PO SCH (10:27)
[2021-10-22] MEDS: IBUPROFEN 600 MG TABLET (FP) PO PRN ×2 (10:28→17:53)
[2021-10-22] MEDS: busPIRone HCL 5 MG TABLET PO SCH ×2 (10:28→22:24)
[2021-10-22] MEDS: THIAMINE HCL 100 MG TABLET (FP) PO SCH (22:24)
[2021-10-22] MEDS: DICYCLOMINE HCL 10 MG CAPSULE PO PRN (22:24)
[2021-10-22] MEDS: MELATONIN 5 MG TABLETS PO SCH (22:25)
[2021-10-22] MEDS: traZODone HCL 100 MG TABLET (FP) PO SCH (22:25)
[2021-10-23] MEDS: METHOCARBAMOL 500 MG TABLET PO PRN ×3 (00:06→22:13)
[2021-10-23] MEDS: chlordiazePOXIDE HCL 10 MG CAPSULE PO SCH ×2 (06:17→17:36)
[2021-10-23] MEDS: propRANOLol HCL 10 MG TABLET PO SCH ×3 (06:18→22:11)
[2021-10-23] MEDS: hydrOXYzine PAMOATE 25 MG CAPSULE (FP) PO SCH ×5 (06:18→22:10)
[2021-10-23] MEDS: IBUPROFEN 400 MG TABLET (FP) PO PRN (06:18)
[2021-10-23] MEDS: MAG HYDROX/AL HYDROX/SIMETH 30 ML UNIT-DOSE CUP PO PRN (06:20)
[2021-10-23] MEDS: busPIRone HCL 5 MG TABLET PO SCH ×2 (09:45→22:11)
[2021-10-23] MEDS: PRENATAL VITAMINS W/ FOLIC ACID TABLET (FP) PO SCH (09:45)
[2021-10-23] MEDS: LOSARTAN POTASSIUM 50 MG TABLET PO SCH (09:45)
[2021-10-23] MEDS: IBUPROFEN 600 MG TABLET (FP) PO PRN ×2 (14:55→22:12)
[2021-10-23] MEDS: ACETAMINOPHEN 325 MG TABLET (FP) PO PRN (17:40)
[2021-10-23] MEDS ORDERED: HYDROCORTISONE 2.5% TOPICAL CREAM 30 GM TUBE TP PRN (20:56)
[2021-10-23] MEDS ORDERED: HYDROCORTISONE ACETATE 25 MG/SUPP.RECT RC SCH (22:00)
[2021-10-23] MEDS: THIAMINE HCL 100 MG TABLET (FP) PO SCH (22:10)
[2021-10-23] MEDS: MELATONIN 5 MG TABLETS PO SCH (22:11)
[2021-10-23] MEDS: traZODone HCL 100 MG TABLET (FP) PO SCH (22:11)
[2021-10-24] MEDS ORDERED: chlordiazePOXIDE HCL 10 MG CAPSULE PO ONE (05:00)
[2021-10-24] MEDS: IBUPROFEN 600 MG TABLET (FP) PO PRN (05:42)
[2021-10-24] MEDS: METHOCARBAMOL 500 MG TABLET PO PRN (05:42)
[2021-10-24] MEDS: hydrOXYzine PAMOATE 25 MG CAPSULE (FP) PO SCH ×2 (05:42→09:50)
[2021-10-24] MEDS: propRANOLol HCL 10 MG TABLET PO SCH (05:44)
[2021-10-24 06:17] VITALS: BP 125/81
[2021-10-24 08:44] VITALS: PULSE 18; RESP 105; TEMP 96.2
[2021-10-24] MEDS: MAG HYDROX/AL HYDROX/SIMETH 30 ML UNIT-DOSE CUP PO PRN (09:50)
[2021-10-24] MEDS: LOSARTAN POTASSIUM 50 MG TABLET PO SCH (09:50)
[2021-10-24] MEDS: PRENATAL VITAMINS W/ FOLIC ACID TABLET (FP) PO SCH (09:50)
[2021-10-24] MEDS: busPIRone HCL 5 MG TABLET PO SCH (09:50)
[2021-10-24] MEDS: IBUPROFEN 400 MG TABLET (FP) PO PRN (10:05)
== END 2021-10-24 10:18 | disposition home or self-care (01) | DRG 897 ==
LOC: YASAS 10:47 → Y3N 14:33
PROVIDERS: ADMIT Allergy & Immunology; ATTEND Allergy & Immunology
PROC: HZ2ZZZZ Detoxification Services for Substance Abuse Treatment (ICD-10-PCS; principal; 2021-10-19)
DX: F10.230 Alcohol dependence with withdrawal, uncomplicated (principal); F17.210 Nicotine dependence, cigarettes, uncomplicated; F41.9 Anxiety disorder, unspecified; I10 Essential (primary) hypertension; K21.9 Gastro-esophageal reflux disease without esophagitis; K64.9 Unspecified hemorrhoids; R00.0 Tachycardia, unspecified; E66.9 Obesity, unspecified; Z68.36 Body mass index [BMI] 36.0-36.9, adult; Z91.410 Personal history of adult physical and sexual abuse; Z91.010 Allergy to peanuts; Z91.013 Allergy to seafood
CPT/HCPCS: 36415; 80053; 82746; 85027; 86780; C9803-CS; Q0162; U0003; U0005

== ENCOUNTER 2021-12-28 11:09 | Inpatient (IN) | payer OTHER ==
[2021-12-28 11:59] VITALS: BMI 38.7
[2021-12-28] MEDS ORDERED: MAGNESIUM CITRATE 300 ML BOTTLE PO PRN (12:04)
[2021-12-28] MEDS ORDERED: NALOXONE HCL (KLOXXADO) 8 MG SPRAY NS PRN (12:04)
[2021-12-28] MEDS ORDERED: ONDANSETRON *ODT* 4 MG TABLET SL PRN (12:04)
[2021-12-28] MEDS ORDERED: DICYCLOMINE HCL 10 MG CAPSULE PO PRN (12:04)
[2021-12-28] MEDS ORDERED: NICOTINE 10 MG CARTRIDGE (INHALER) IH PRN (12:04)
[2021-12-28] MEDS ORDERED: MAGNESIUM HYDROX 2400MG/30ML ORAL SUSPENSION 30 ML CUP PO PRN (12:04)
[2021-12-28] MEDS ORDERED: MAG HYDROX/AL HYDROX/SIMETH 30 ML UNIT-DOSE CUP PO PRN (12:04)
[2021-12-28] MEDS ORDERED: LOPERAMIDE HCL 2 MG CAPSULE PO PRN (12:04)
[2021-12-28] MEDS ORDERED: ACETAMINOPHEN 325 MG TABLET (FP) PO PRN (12:04)
[2021-12-28] MEDS ORDERED: diazePAM 5 MG TABLET ONE (12:27)
[2021-12-28] MEDS: diazePAM 5 MG TABLET PO SCH ×3 (12:37→22:06)
[2021-12-28] MEDS ORDERED: LOSARTAN POTASSIUM 50 MG TABLET PO ONE (12:39)
[2021-12-28] MEDS ORDERED: propRANOLol HCL 10 MG TABLET PO ONE (12:40)
[2021-12-28] MEDS: IBUPROFEN 600 MG TABLET (FP) PO PRN (12:48)
[2021-12-28] MEDS: PRENATAL VITAMINS W/ FOLIC ACID TABLET (FP) PO SCH (12:48)
[2021-12-28] MEDS: hydrOXYzine PAMOATE 25 MG CAPSULE (FP) PO SCH ×3 (13:04→22:05)
[2021-12-28 17:01] LABS: CALCIUM 9.4 mg/dL (8.5-10.1)
[2021-12-28 17:02] LABS: ALBUMIN 3.8 g/dl (3.4-5.0); BLOOD UREA NITROGEN 6.2 mg/dL (7-18)
[2021-12-28 17:03] LABS: HEMATOCRIT 35.6 % (32.4-45.2); MCH 22.9 pg (25.7-33.7); MEAN CELL VOLUME 73.7 fl (80-96); MEAN PLT VOLUME 8.5 fl (7.5-11.1); PLATELET COUNT 372 10^3/uL (134-434); RBC 4.83 M/mm3 (3.60-5.2); RDW 22.4 % (11.6-15.6); WHITE BLOOD COUNT 10.9 K/mm3 (4.0-10.0)
[2021-12-28 17:05] LABS: CREATININE 0.5 mg/dL (0.55-1.3)
[2021-12-28 17:06] LABS: BILIRUBIN,TOTAL 0.3 mg/dL (0.2-1); TOT PROT 7.8 g/dl (6.4-8.2)
[2021-12-28] MEDS: ACETAMINOPHEN 325 MG TABLET (FP) PO PRN (17:40)
[2021-12-28 18:29] LABS: HIV INTERPRETATION NEGATIVE (NEGATIVE)
[2021-12-28] MEDS: BISMUTH SUBSALICYLATE 524 MG/30 ML PO PRN (19:46)
[2021-12-28] MEDS: diazePAM 5 MG TABLET PO PRN (19:46)
[2021-12-28] MEDS: traZODone HCL 100 MG TABLET (FP) PO SCH (22:05)
[2021-12-28] MEDS: MELATONIN 5 MG TABLETS PO SCH (22:05)
[2021-12-28] MEDS: THIAMINE HCL 100 MG TABLET (FP) PO SCH (22:05)
[2021-12-28] MEDS: METHOCARBAMOL 500 MG TABLET PO PRN (22:07)
[2021-12-28] MEDS: busPIRone HCL 5 MG TABLET PO SCH (22:46)
[2021-12-29] MEDS: diazePAM 5 MG TABLET PO SCH ×4 (06:08→22:26)
[2021-12-29] MEDS: hydrOXYzine PAMOATE 25 MG CAPSULE (FP) PO SCH ×5 (06:08→22:26)
[2021-12-29] MEDS: busPIRone HCL 5 MG TABLET PO SCH ×2 (10:22→22:26)
[2021-12-29] MEDS: LOSARTAN POTASSIUM 50 MG TABLET PO SCH (10:22)
[2021-12-29] MEDS: METHOCARBAMOL 500 MG TABLET PO PRN ×2 (10:22→18:02)
[2021-12-29] MEDS: PRENATAL VITAMINS W/ FOLIC ACID TABLET (FP) PO SCH (10:22)
[2021-12-29] MEDS: propRANOLol HCL 10 MG TABLET PO SCH (10:23)
[2021-12-29] MEDS: ACETAMINOPHEN 325 MG TABLET (FP) PO PRN ×2 (10:59→22:29)
[2021-12-29] MEDS: GABAPENTIN 300 MG CAPSULE PO SCH ×2 (14:05→22:26)
[2021-12-29] MEDS: PANTOPRAZOLE 20 MG TABLET PO SCH (14:05)
[2021-12-29] MEDS: diazePAM 5 MG TABLET PO PRN (14:07)
[2021-12-29] MEDS: IBUPROFEN 600 MG TABLET (FP) PO PRN (18:03)
[2021-12-29] MEDS: MELATONIN 5 MG TABLETS PO SCH (22:26)
[2021-12-29] MEDS: THIAMINE HCL 100 MG TABLET (FP) PO SCH (22:26)
[2021-12-29] MEDS: traZODone HCL 100 MG TABLET (FP) PO SCH (22:26)
[2021-12-30] MEDS: hydrOXYzine PAMOATE 25 MG CAPSULE (FP) PO SCH ×5 (05:58→22:21)
[2021-12-30] MEDS: GABAPENTIN 300 MG CAPSULE PO SCH ×3 (05:58→22:23)
[2021-12-30] MEDS: IBUPROFEN 400 MG TABLET (FP) PO PRN ×2 (06:03→22:23)
[2021-12-30] MEDS: METHOCARBAMOL 500 MG TABLET PO PRN (06:03)
[2021-12-30] MEDS: BENZOCAINE/MENTHOL (CHLORASEPTIC ) LOZENGE MM PRN ×2 (06:05→22:26)
[2021-12-30] MEDS: diazePAM 5 MG TABLET PO SCH ×3 (06:07→22:22)
[2021-12-30] MEDS: LOSARTAN POTASSIUM 50 MG TABLET PO SCH (10:14)
[2021-12-30] MEDS: busPIRone HCL 5 MG TABLET PO SCH ×2 (10:14→22:21)
[2021-12-30] MEDS: PANTOPRAZOLE 20 MG TABLET PO SCH (10:14)
[2021-12-30] MEDS: propRANOLol HCL 10 MG TABLET PO SCH (10:14)
[2021-12-30] MEDS: PRENATAL VITAMINS W/ FOLIC ACID TABLET (FP) PO SCH (10:14)
[2021-12-30] MEDS: diazePAM 5 MG TABLET PO PRN ×2 (10:17→17:27)
[2021-12-30 11:10] LABS: HEMOGLOBIN 10.3 GM/dL (10.7-15.3); MCH 22.9 pg (25.7-33.7); MCHC 30.2 g/dl (32.0-36.0); MEAN CELL VOLUME 75.8 fl (80-96); MEAN PLT VOLUME 8.8 fl (7.5-11.1); PLATELET COUNT 277 10^3/uL (134-434); RBC 4.49 M/mm3 (3.60-5.2); WHITE BLOOD COUNT 6.3 K/mm3 (4.0-10.0)
[2021-12-30] MEDS: IBUPROFEN 600 MG TABLET (FP) PO PRN (17:29)
[2021-12-30] MEDS: traZODone HCL 100 MG TABLET (FP) PO SCH (22:21)
[2021-12-30] MEDS: THIAMINE HCL 100 MG TABLET (FP) PO SCH (22:21)
[2021-12-30] MEDS: MELATONIN 5 MG TABLETS PO SCH (22:21)
[2021-12-31] MEDS: diazePAM 5 MG TABLET PO SCH ×2 (05:40→17:53)
[2021-12-31] MEDS: GABAPENTIN 300 MG CAPSULE PO SCH ×3 (05:40→21:57)
[2021-12-31] MEDS: hydrOXYzine PAMOATE 25 MG CAPSULE (FP) PO SCH ×5 (05:40→21:56)
[2021-12-31] MEDS: IBUPROFEN 400 MG TABLET (FP) PO PRN (05:41)
[2021-12-31] MEDS: METHOCARBAMOL 500 MG TABLET PO PRN ×3 (05:42→21:57)
[2021-12-31] MEDS: busPIRone HCL 5 MG TABLET PO SCH ×2 (10:13→21:56)
[2021-12-31] MEDS: LOSARTAN POTASSIUM 50 MG TABLET PO SCH (10:13)
[2021-12-31] MEDS: PRENATAL VITAMINS W/ FOLIC ACID TABLET (FP) PO SCH (10:14)
[2021-12-31] MEDS: diazePAM 5 MG TABLET PO PRN (10:14)
[2021-12-31] MEDS: propRANOLol HCL 10 MG TABLET PO SCH (10:14)
[2021-12-31] MEDS: PANTOPRAZOLE 20 MG TABLET PO SCH (10:14)
[2021-12-31] MEDS: IBUPROFEN 600 MG TABLET (FP) PO PRN (17:54)
[2021-12-31] MEDS: THIAMINE HCL 100 MG TABLET (FP) PO SCH (21:57)
[2021-12-31] MEDS: traZODone HCL 100 MG TABLET (FP) PO SCH (21:57)
[2021-12-31] MEDS: MELATONIN 5 MG TABLETS PO SCH (21:57)
[2021-12-31] MEDS: BISMUTH SUBSALICYLATE 524 MG/30 ML PO PRN (21:59)
[2022-01-01] MEDS ORDERED: diazePAM 5 MG TABLET PO ONE (06:00)
[2022-01-01] MEDS: hydrOXYzine PAMOATE 25 MG CAPSULE (FP) PO SCH ×2 (06:16→10:13)
[2022-01-01] MEDS: GABAPENTIN 300 MG CAPSULE PO SCH (06:16)
[2022-01-01] MEDS: METHOCARBAMOL 500 MG TABLET PO PRN (06:17)
[2022-01-01] MEDS: IBUPROFEN 400 MG TABLET (FP) PO PRN (06:21)
[2022-01-01 09:44] VITALS: BP 138/88; PULSE 103; RESP 20; TEMP 97.7
[2022-01-01] MEDS: PRENATAL VITAMINS W/ FOLIC ACID TABLET (FP) PO SCH (10:12)
[2022-01-01] MEDS: PANTOPRAZOLE 20 MG TABLET PO SCH (10:13)
[2022-01-01] MEDS: busPIRone HCL 5 MG TABLET PO SCH (10:13)
[2022-01-01] MEDS: LOSARTAN POTASSIUM 50 MG TABLET PO SCH (10:13)
[2022-01-01] MEDS: propRANOLol HCL 10 MG TABLET PO SCH (10:13)
[2022-01-01] MEDS: IBUPROFEN 600 MG TABLET (FP) PO PRN (10:14)
== END 2022-01-01 11:08 | disposition home or self-care (01) | DRG 897 ==
LOC: YASAS 11:09 → Y3N 12:10
PROVIDERS: ADMIT Allergy & Immunology; ATTEND Surgery
PROC: HZ2ZZZZ Detoxification Services for Substance Abuse Treatment (ICD-10-PCS; principal; 2021-12-28)
DX: F10.230 Alcohol dependence with withdrawal, uncomplicated (principal); F10.280 Alcohol dependence with alcohol-induced anxiety disorder; F41.9 Anxiety disorder, unspecified; F43.10 Post-traumatic stress disorder, unspecified; I10 Essential (primary) hypertension; K21.9 Gastro-esophageal reflux disease without esophagitis; D50.9 Iron deficiency anemia, unspecified; D72.829 Elevated white blood cell count, unspecified; E66.9 Obesity, unspecified; Z68.38 Body mass index [BMI] 38.0-38.9, adult; Z87.891 Personal history of nicotine dependence; Z86.59 Personal history of other mental and behavioral disorders; Z91.010 Allergy to peanuts; Z91.013 Allergy to seafood
CPT/HCPCS: 36415; 80053; 81025; 85027; 86780; 87389; C9803-CS; Q0162; U0003; U0005